=== PATIENT | male | born 1985 | race Two or more races ===

== ENCOUNTER 2022-10-28 23:50 | Emergency (ER) | payer MEDICAID ==
[~2022-10-28] VITALS: Ht 167.6 cm; Wt 97.5 kg
[2022-10-28] MEDS ORDERED: LORAZEPAM INJ 2 MG/ML VIAL ONE (23:57)
[2022-10-28] MEDS ORDERED: diphenhydrAMINE HCL 50 MG/ML VIAL ONE (23:57)
[2022-10-28] MEDS ORDERED: HALOPERIDOL LACTATE INJ 5 MG/ML VIAL ONE (23:57)
[2022-10-29] MEDS ORDERED: HALOPERIDOL LACTATE INJ 5 MG/ML VIAL IM ONE
[2022-10-29] MEDS ORDERED: LORAZEPAM INJ 2 MG/ML VIAL IV ONE
[2022-10-29] MEDS ORDERED: diphenhydrAMINE HCL 50 MG/ML VIAL IM ONE
--- NOTE | 2022-10-29 00:05 | NUR ---
PATIENT [employer] AND [employer] C/O ACTING AGGRESSIVE AT IN N OUT. PATIENT IS ACTING AGGRESSIVE TOWARDS STAFF. PATIENT TO ER BED 07. WILL CONTINUE TO MONITOR.
[2022-10-29 01:15] VITALS: BP 132/70
--- NOTE | 2022-10-29 02:26 | NUR ---
PT DRINKING WATER; TOLERATING WELL.
--- NOTE | 2022-10-29 02:28 | NUR ---
Patient discharged to home in stable condition. Written and verbal after care instructions given. Patient verbalizes understanding of instruction.
== END 2022-10-29 02:50 | disposition home or self-care (01) ==
LOC: ER 10-29 00:01
DX: F19.10 Other psychoactive substance abuse, uncomplicated (principal); Z88.0 Allergy status to penicillin
CPT/HCPCS: 99284; 96372 ×2; 82962; J2060; J1200; J1630